=== PATIENT | male | born 1975 | race Caucasian/White ===

== ENCOUNTER 2020-05-29 10:11 | Outpatient (CLI) | payer OTHER | END 2020-05-29 10:12 | disposition home or self-care (01) | LOC: BICULT 10:11 | PROVIDERS: ATTEND Internal Medicine Gastroenterology | DX: R94.5 Abnormal results of liver function studies (principal); K76.0 Fatty (change of) liver, not elsewhere classified; R16.1 Splenomegaly, not elsewhere classified | CPT/HCPCS: 76705 ==